=== PATIENT | female | born 1940 | race Caucasian/White ===

== ENCOUNTER 2016-10-29 09:49 | Outpatient (CLI) | payer MEDICARE, OTHER | END 2016-10-29 09:50 | disposition home or self-care (01) | DX: G47.33 Obstructive sleep apnea (adult) (pediatric) (principal) | CPT/HCPCS: 99214; G0463 ==

== ENCOUNTER 2017-01-05 10:56 | Outpatient (CLI) | payer MEDICARE, OTHER | END 2017-01-05 10:57 | disposition home or self-care (01) | DX: Z12.31 Encounter for screening mammogram for malignant neoplasm of breast (principal) ==

== ENCOUNTER 2017-02-13 09:24 | Outpatient (CLI) | payer MEDICARE, OTHER | END 2017-02-13 09:25 | disposition home or self-care (01) | DX: R53.83 Other fatigue (principal); E78.5 Hyperlipidemia, unspecified ==

== ENCOUNTER 2017-12-01 11:18 | Outpatient (CLI) | payer MEDICARE, OTHER | END 2017-12-01 11:19 | disposition home or self-care (01) | LOC: SC 11:18 | PROVIDERS: ATTEND Nurse Practitioner Family | DX: G47.33 Obstructive sleep apnea (adult) (pediatric) (principal) | CPT/HCPCS: 99213; G0463; 99212 ==

== ENCOUNTER 2018-01-05 12:05 | Outpatient (CLI) | payer MEDICARE, OTHER ==
--- NOTE | 2018-01-06 12:18 | Mammography Report ---
DIGITAL SCREENING MAMMOGRAM: 01/05/2018 CLINICAL INDICATION: A 77-year-old with history of benign biopsy for screening. COMPARISON: 12/2016, 11/2015, 10/2014, 10/2012, 07/2012, 07/2011, 06/2010. TECHNIQUE: Routine CC and MLO projections were obtained of the breasts. FINDINGS: The breasts demonstrate scattered fibroglandular densities bilaterally. Punctate, typically benign calcifications are present. Postbiopsy changes in the right breast are stable. No suspicious masses, clustered microcalcifications, or regions of architectural distortion are identified. IMPRESSION: BENIGN FINDINGS. RECOMMENDATION: Routine annual screening unless otherwise clinically indicated. BIRADS CATEGORY 2 - BENIGN FINDINGS. STANDARD QUALIFYING STATEMENTS: 1. This examination was reviewed with the aid of Computer-Aided Detection (CAD). 2. A negative or benign imaging report should not delay biopsy if clinically suspicious findings are present. Consider surgical consultation if warranted. More than 5% of cancers are not identified by imaging. 3. Dense breasts may obscure an underlying neoplasm. TD: 01/06/2018 12:17
== END 2018-01-05 12:06 | disposition home or self-care (01) ==
LOC: DI.N 12:05
PROVIDERS: ATTEND Family Medicine
DX: Z12.31 Encounter for screening mammogram for malignant neoplasm of breast (principal)
CPT/HCPCS: 77067

== ENCOUNTER 2018-12-20 11:13 | Outpatient (CLI) | payer MEDICARE, OTHER | END 2018-12-20 11:14 | disposition home or self-care (01) | LOC: SC 11:13 | PROVIDERS: ATTEND Nurse Practitioner Family | DX: G47.33 Obstructive sleep apnea (adult) (pediatric) (principal) | CPT/HCPCS: 99213; G0463; 99212 ==

== ENCOUNTER 2019-11-10 12:41 | Outpatient (CLI) | payer MEDICARE, OTHER | END 2019-11-10 12:42 | disposition EMS.NT | LOC: EMS 12:41 | PROVIDERS: ATTEND Surgery | DX: R42 Dizziness and giddiness (principal) ==

== ENCOUNTER 2019-12-16 23:13 | Outpatient (CLI) | payer MEDICARE, OTHER | END 2019-12-16 23:14 | disposition EMS.NT | LOC: EMS 23:13 | PROVIDERS: ATTEND Surgery | DX: R41.82 Altered mental status, unspecified (principal) ==

== ENCOUNTER 2020-02-01 12:16 | Outpatient (CLI) | payer MEDICARE, OTHER ==
--- NOTE | 2020-02-01 10:59 | SLEEP CARE CONSULTATION ---
Information from patient questionnaire entered by Valentina Patel. I have reviewed and concur with the information entered by Valentina Patel. This document represents the service I personally performed and the decisions made by me, Kimberly Coppola, RN, MSN, UNIT TENDER. History of Present Illness Service Date and Time: 02/01/2020 1030 Previous diagnosis: Mild, Obstructive Sleep Apnea-Hypopnea Syndrome AHI: 5 Reason for follow up: annual Equipment type: CPAP Equipment obtained from: [facility] (feels she needs a nose piece) Mask style: Nasal Backup mask available: No (keep current mask as spare when replaced) Last cushion change: 3 months CPAP Compliance Data - Data Reviewed with Patient Average duration of nightly device use: 5h 10m Compliance rate %: 51.1 Current pressure setting (cmH2O): 10 Humidity settin Heated hose settin Average residual AHI: 2.6 Average large leak: 7m 44s Subjective Missed days of use due to: reports: illness (lingering cold since trip from [place] and hard to use when has running nose. Just started using it regularly since the past couple weeks ) Patient concerns: reports: nasal congestion (slightly but can wear CPAP now), dry mouth, nose, throat, other (r). denies: aerophagia, mask discomfort, air blowing in eyes (rare dry mouth), mask leak noise, condensation in mask/hose, epistaxis Observed to snore while using device: No Current pressure setting perceived as: comfortable On therapy, patient: reports: sleeping better, more rested overall (a little more rested with recent increase of use). denies: drowsiness while driving Initial [place] Sleepiness Scale score: 2 Physical Exam Height: 5 ft 2 in Weight: 150 lb Body Mass Index: 27.4 BMI Classification: Overweight Impression and Plan 1. Obstructive Sleep Apnea-Hypopnea Syndrome, mild, with fair treatment compliance and good apnea control. On CPAP therapy, the patient has better sleep quality and is more rested overall.She has been very tired and sleepy lately and followed up with PCP who suggested to check her CPAP settings. This has caused her to have a nap for an hour frequently in the morning after breakfast and sometimes in the afternoon. this has been occurring for about 3 months. Review of her comliance report shows nightly use ranging from 5-10 hours. The last week of use has been about 6 hours a night and patient has begun to feel a little more rested during the day. So it appears her nasal congestion and recent cold reduced her CPAP use and could be cause of her fatigue. Nasal congestion can be reduced with increasing the CPAP humidity as shown on sample device. However, when I talked about the humidity unit, she states she does not have one attached but there seems to be a place it can attach. Thus I will have [facility] contact her to clarify and see if we can add to have this option. Until then I advised her to use saline nasal spray , prior to CPAP to clear nasal secretions and wash off any nasal allergens to facilitate nasal breathing. This can be jeremy ght in grocery or drug store. In addition, a steamy shower before bed will often assist nasal drainage. I also advised her that she can contact her PCP to state her CPAP pressure is adequate but she is not using it enough for benefit. I will also document this on her report. She needs to use CPAP with all sleep. Most people average 7-9 hours of sleep a night for optimal mental and physical function. Patient's apnea severity and rationale for treatment to reduce apnea, improve sleep quality was reviewed. * Continue CPAP pressure at 10 cmH2O * Implement methods to reduce nasal congestion * Contact [facility] re lack of humidifier * Use CPAP with all sleep * Notify me if snoring with mask or feeling that the pressure is too much or too little * Call this office if any problems using CPAP * Return for follow up in 1 month , or sooner if concerns arise Visit Type: Telehealth Phone (to minimize exposure to Covid 19 risk.) Patient Location: Home Location of Provider: Home Patient agrees and consents to this telehealth visit type: Yes Patient agrees to have their insurance billed: Yes Time Spent with Patient (minutes): 10 Provider Statement: I spent 100% of the Telehealth Phone Call with the patient with greater than 50% spent counseling the patient and coordination of care.
== END 2020-02-01 12:17 | disposition home or self-care (01) ==
LOC: SC 12:16
PROVIDERS: ATTEND Nurse Practitioner Family
DX: G47.33 Obstructive sleep apnea (adult) (pediatric) (principal); E66.3 Overweight; Z68.27 Body mass index [BMI] 27.0-27.9, adult

== ENCOUNTER 2021-07-11 15:48 | Outpatient (CLI) | payer MEDICARE, OTHER ==
[2021-07-11 16:25] VITALS: BP 122/65
--- NOTE | 2021-07-11 16:25 | SLEEP CARE CONSULTATION ---
Information from patient questionnaire entered by Gonzalo Ferrell. I have reviewed and concur with the information entered by Gonzalo Ferrell. This document represents the service I personally performed and the decisions made by , Terrie Lea ARNP. History of Present Illness Service Date and Time: 07/11/2021 1548 Previous diagnosis: Mild, Obstructive Sleep Apnea-Hypopnea Syndrome AHI: 5.0 Reason for follow up: annual (Last seen 01/2020) Equipment obtained from: [facility] Mask style: Nasal Mask brand: Respironics Backup mask available: No (will keep old mask when replaced) Last cushion change: 4-6 months Year and Where: 2009 Merged with [facility] poly/titration HPI additional information: HENRY WOODRUFF was diagnosed to have mild, AHI 5.0, obstructive sleep apnea-hypopnea syndrome and returned today for CPAP therapy annual follow-up. CPAP Compliance Data - Data Reviewed with Patient Average duration of nightly device use: 6 h 53 min Compliance rate %: 83.9 Current pressure setting (cmH2O): 10 Humidity settin Heated hose settin Average residual AHI: 1.5 Hypopnea: 31 min 3 sec Subjective Patient concerns: reports: air blowing in eyes, mask leak noise, dry mouth, nose, throat (periodically). denies: aerophagia, mask discomfort, condensation in mask/hose, nasal congestion, epistaxis, other Observed to snore while using device: No Current pressure setting perceived as: comfortable On therapy, patient: reports: sleeping better, awakening more refreshed, being more awake and alert during the day, more rested overall. denies: drowsiness while driving Initial [place] Sleepiness Scale score: 2 (in 2008) Current [place] Sleepiness Scale score: 2 Allergies and Home Medications Home medication list reviewed: Yes (no changes) Review of Systems Review of systems same as previous: Yes (no changes) Physical Exam Blood Pressure: 122/65 Cuff size: wrist Heart Rate: 71 O2 Saturation: 95 Height: 5 ft 2 in Weight: 158 lb Body Mass Index: 28.9 BMI Classification: Overweight Impression and Plan 1. Obstructive Sleep Apnea-Hypopnea Syndrome, mild, with good treatment compliance and good apnea control. On CPAP therapy, the patient has better sleep quality and is more rested overall. Patient came in concerned about the recall on her device. She knows her machine is older and she is eligible for a new device. She needs a new DME company to get supplies since her last one no longer deals in CPAP supplies. I will have my patient resource coordinator inform of DME options. Patient advised to contact this office if further supply problems. Patient was encouraged to register their device online with [employer] for the recall to see if their device is affected. If their device is affected they should start a claim. Patient denies any black particles seen in machine or hoses, any unusual odors coming from device. Patient has not experienced any physical symptoms such as upper airway irritation, headache, skin or eye irritation, asthma, nausea/vomiting, difficulty breathing or chest pain. Since the patients current machine is at least 5 years old the patient is opting to update their device with a device that is not on the recall. A DWO prescription will be made. Compliance guidelines for new device and follow up discussed. Patient voiced understanding and agreement with plan. Patient's apnea severity and rationale for treatment to reduce apnea, improve sleep quality and reduce cardiovascular and cerebrovascular events was reviewed. I also reviewed the benefit of consistent device use of CPAP for hypertension. * Continue CPAP pressure at 10 cmH2O * Update device * Update supplies as needed * Notify me if snoring with mask or feeling that the pressure is too much or too little * Attempt to lose weight * Call this office if any problems using CPAP * Return for follow up one month after obtaining new device, or sooner if concerns arise Counseling Topics: Spare mask, Weight loss health impact Visit Type: In Office Time Spent with Patient (minutes): 25 Provider Statement: I spent 100% of the Face to Face Visit with the patient with greater than 50% spent counseling the patient and coordination of care.
== END 2021-07-11 15:49 | disposition home or self-care (01) ==
LOC: SC 15:48
PROVIDERS: ATTEND Nurse Practitioner Family
DX: G47.33 Obstructive sleep apnea (adult) (pediatric) (principal)
CPT/HCPCS: 99213; G0463; 99212

== ENCOUNTER 2022-04-15 10:47 | Outpatient (CLI) | payer MEDICARE, OTHER ==
--- NOTE | 2022-04-16 17:36 | Mammography Report ---
BILATERAL DIGITAL SCREENING MAMMOGRAM 3D/2D: 04/15/2022 CLINICAL: Routine screening. Comparison is made to exams dated: 01/05/2017 mammogram, 12/13/2015 mammogram, 11/15/2014 mammogram, mammogram, 08/26/2012 mammogram - [facility], and 05/07/2004 mammogram - [facility]. The tissue of both breasts is predominantly fatty. There is an irregular equal density focal asymmetry in the left breast central to the nipple middle d epth. No other significant masses, calcifications, or other findings are seen in either breast. IMPRESSION: INCOMPLETE: NEEDS ADDITIONAL IMAGING EVALUATION The irregular equal density focal asymmetry in the left breast is indeterminate. Additional views wi th possible ultrasound are recommended. Based on the Tyrer Cuzick model (a risk assessment model) the patients lifetime risk is 0.1% and her 10 year risk is 0.0%. According to the ACR, ACS, and NCCN guidelines, an annual breast MRI exam mackenzie g with mammogram is recommended if the patients lifetime risk is 20% or greater. This exam was interpreted at Station ID: [id number]. NOTE: For mammograms, a report in lay terms will be sent to the patient. Approximately 15% of breast malignancies will not be visualized mammographically. In the management of a palpable breast mass, a negative mammogram must not discourage biopsy of a clinically suspicious lesion. Electronically Signed By: Tiffany camargo/madelaine:04/15/2022 16:37:39 ACR BI-RADS Category 0: Incomplete 3340F PARENCHYMAL PATTERN: (F) - The breast(s) demonstrate(s) diffuse fatty replacement. BI-RADS CATEGORY: (0) - 0 Mammo and US [id number] Immediate follow-up LATERALITY: (B)
== END 2022-04-15 10:48 | disposition home or self-care (01) ==
LOC: DI.N 10:47
PROVIDERS: ATTEND Family Medicine
DX: Z12.31 Encounter for screening mammogram for malignant neoplasm of breast (principal); R92.8 Other abnormal and inconclusive findings on diagnostic imaging of breast

== ENCOUNTER 2022-12-03 09:19 | Outpatient (CLI) | payer MEDICARE, OTHER ==
--- NOTE | 2022-12-05 11:38 | Mammography Report ---
UNILATERAL LEFT DIGITAL DIAGNOSTIC MAMMOGRAM 3D/2D: 12/03/2022 CLINICAL: Patient returns for a 6 month follow up of the left breast. Comparison is made to exams dated: 05/05/2022 mammogram - [facility], 04/15/2022 mammogram, and 01/05 mammogram - [facility]. The left breast is almost entirely fatty (category a/<25% glandular tissue). There is a focal asymmetry in the left breast central to the nipple middle depth. This is less promi nent. No other significant masses or calcifications are seen in the breast. IMPRESSION: INCOMPLETE: NEEDS ADDITIONAL IMAGING EVALUATION The focal asymmetry in the left breast is indeterminate. A targeted ultrasound is recommended and will immediately follow. Based on the Tyrer Cuzick model (a risk assessment model) the patients lifetime risk is 0.1% and her 10 year risk is 0.0%. According to the ACR, ACS, and NCCN guidelines, an annual breast MRI exam mackenzie g with mammogram is recommended if the patients lifetime risk is 20% or greater. This exam was interpreted at Station ID: [id number]. NOTE: For mammograms, a report in lay terms will be sent to the patient. Approximately 15% of breast malignancies will not be visualized mammographically. In the management of a palpable breast mass, a negative mammogram must not discourage biopsy of a clinically suspicious lesion. Electronically Signed By: Roldan Gordillo M.D. [facility]/:12/03/2022 10:24:40 ACR BI-RADS Category 0: Incomplete 3340F PARENCHYMAL PATTERN: (F) - The breast(s) demonstrate(s) diffuse fatty replacement. BI-RADS CATEGORY: (0) - 0 Ultrasound [id number] Immediate follow-up LATERALITY: (B)
--- NOTE | 2022-12-05 11:38 | Ultrasound Report ---
LIMITED ULTRASOUND OF LEFT BREAST: 12/03/2022 CLINICAL: 6 month follow-up of cysts. Comparison is made to exams dated: 04/15/2022 mammogram, 01/05/2018 mammogram, 01/05/2017 mammogram - [facility], 05/05/2022 mammogram, and 05/05/2022 ultrasound - [facility]. Color flow and real-time ultrasound of the left breast 4 o'clock, 6 o'clock, 9 o'clock, and retroareo lar regions were performed. Blue scale images of the real-time examination were reviewed. There is a benign dilated duct in the left breast at 4 o'clock anterior depth. This abnormality is l ess prominent. The cyst in the left breast at 9 o'clock middle depth is no longer seen. No cyst in the retroareolar region. IMPRESSION: PROBABLY BENIGN There is no sonographic evidence of malignancy. The dilated duct in the left breast at 4 o'clock anterior depth is benign. Previously seen cyst at 9:00 is no longer seen. A follow-up mammogram and possible ultrasound in 6 months is recommended to demonstrate stability of the mammographic focal asymmetry. Exam findings were conveyed to the patient. This exam was interpreted at Station ID: [id number]. Electronically Signed By: Roldan Gordillo M.D. [facility]/:12/03/2022 10:55:23 Ultrasound BI-RADS: 3 Probably benign BI-RADS CATEGORY: (3) - 3 Mammo and US [id number] 6 month follow-up LATERALITY: (B)
== END 2022-12-03 09:20 | disposition home or self-care (01) ==
LOC: DI 09:19
PROVIDERS: ATTEND Family Medicine
DX: Z09 Encounter for follow-up examination after completed treatment for conditions other than malignant neoplasm (principal); Z87.898 Personal history of other specified conditions; N60.42 Mammary duct ectasia of left breast